=== PATIENT | male | born 1945 | race African-American/Black ===

== ENCOUNTER 2016-07-18 07:59 | Emergency (ER) | payer OTHER, MEDICAID ==
[~2016-07-18] VITALS: Ht 188 cm; Wt 100.0 kg
[2016-07-18 08:02] VITALS: Ht 188 cm; Wt 100.0 kg
[2016-07-18] MEDS ORDERED: ONDANSETRON 4 MG INJ IV STA (08:16)
[2016-07-18] MEDS ORDERED: SOD CHLORIDE 0.9% 1,000 ML IV STA (08:16)
[2016-07-18] MEDS ORDERED: morphine 4 MG/ML VIAL IV STA (08:16)
[2016-07-18 09:20] LABS: BASOPHILS % 0.8 % (0.0-2.0); EOSINOPHILS # 0.1 10^3/ul (0.0-0.5); EOSINOPHILS % 2.3 % (0.0-7.0); HEMATOCRIT 37.9 % (42.0-52.0); HEMOGLOBIN 12.8 g/dl (14.0-18.0); LYMPHOCYTES # 3.2 10^3/ul (0.8-2.9); LYMPHOCYTES % 51.3 % (15.0-51.0); MEAN CORPUSCULAR HEMOGLOBIN 32.9 pg (29.0-33.0); MEAN CORPUSCULAR HGB CONC 33.8 g/dl (32.0-37.0); MEAN CORPUSCULAR VOLUME 97.3 fl (82.0-101.0); MEAN PLATELET VOLUME 8.2 fl (7.4-10.4); MONOCYTE # 0.5 10^3/ul (0.3-0.9); NEUTROPHIL # 2.4 10^3/ul (1.6-7.5); NEUTROPHILS % 37.6 % (39.0-77.0); PLATELET COUNT 218 10^3/UL (140-440); RED BLOOD COUNT 3.89 10^6/ul (4.70-6.10); RED CELL DISTRIBUTION WIDTH 18.6 % (11.5-14.5); UNCORRECTED WBC 6.3 10^3/ul (4.8-10.8); WHITE BLOOD COUNT 6.3 10^3/ul (4.8-10.8)
[2016-07-18 09:25] LABS: CONDITION 1; LH ANALYZER COMMENTS 1
[2016-07-18 09:26] LABS: ALBUMIN 3.8 g/dl (3.3-4.9)
[2016-07-18 09:27] LABS: POTASSIUM 3.2 mmol/L (3.5-5.1)
[2016-07-18 09:29] LABS: BILIRUBIN,INDIRECT 0.2 mg/dl (0-1.1); BILIRUBIN,TOTAL 0.2 mg/dl (0.2-1.3); CREATININE 0.58 mg/dl (0.61-1.24)
[2016-07-18 09:30] LABS: ALBUMIN/GLOBULIN RATIO 1.11; CALCIUM 8.7 mg/dl (8.4-10.2); TOTAL PROTEIN 7.2 g/dl (6.1-8.1)
[2016-07-18 09:41] LABS: TROPONIN-I 0.032 ng/ml (0.00-0.12)
[2016-07-18] MEDS ORDERED: IOHEXOL 300MG/ML 150 ML BTL ONE (09:46)
[2016-07-18] MEDS ORDERED: SOD CHLORIDE 0.9% 100 ML ONE (09:46)
--- NOTE | 2016-07-18 10:21 | RADRPT ---
PROCEDURE: CT brain without contrast CLINICAL INDICATION: Weakness TECHNIQUE: CT of the brain without contrast performed on a multidetector CT scanner, with multiplan ar reformats. One or more of the following dose reduction techniques were used: Automated exposure control, adjustment in mA and / or kV according to patient size, use of iterative reconstructive maggie hnique. CTDIvol = 44 mGy; DLP = 810 mGy-cm. COMPARISON: None available FINDINGS: No acute intracranial hemorrhage is identified. No extra-axial fluid collection is seen. There is no mass effect. No midline shift is identified. Ventricles and sulci are mildly enlarged compatible with generalized volume loss. There are mild areas of hypodensity in the periventricular - deep white matter which are nonspecific but suggestive of chronic small vessel ischemic changes. Weller-white differentiation is preserved. Atherosclerotic calcifications of the intracranial internal carotid arteries are noted. Osseous structures are unremarkable. Mastoid air cells and imaged paranasal sinuses grossly clear. IMPRESSION: 1. No acute intracranial pathology identified. 2. Mild generalized volume loss, with mild chronic small vessel ischemic changes. RPTAT: VV .Neal Schaefer MD, Date Time Electronically viewed and signed by .Neal Schaefer MD, on 07/18/2016 10:20 .O/
[2016-07-18 10:30] VITALS: BP 138/76; PULSE 90; RESP 20
--- NOTE | 2016-07-18 10:32 | RADRPT ---
PROCEDURE: CT abdomen and pelvis with contrast. CLINICAL INDICATION: abdominal pain TECHNIQUE: CT scan of the abdomen and pelvis with contrast [facility] The patient was scanned after administration of 100 cc of Omnipaque-300 intravenous contrast. Sagittal and coronal reformatted images were obtained from the axial source images. DLP 1424.3 mGycm. CTDIvol 19.4 mGy COMPARISON: None. FINDINGS: Bibasilar scarring is seen with slight elevation of the right hemidiaphragm and a trace amount of ri ght-sided pleural fluid.. Coronary artery calcifications are seen in the heart. There is an area of localized mild fat stranding seen in the pancreatic head there is indeterminate with a fluid density structure measuring 2.7 x 2.3 cm in the pancreatic uncinate process which has s ome calcifications along the rim and the largest of these measures 6 mm on series 3, image 93. Ther e is no pancreatic ductal dilatation or dilatation of the common duct with no gross visible stone fo r expected course of the common duct itself. There is a possible pancreatic divisum. The gallbladder is distended with multiple layering gallstones with no visible surrounding perichole cystic fluid or fat stranding. The liver is diffusely fatty infiltrated with no evidence of focal l esion or intrahepatic biliary ductal dilatation. The portal vein is intact without thrombus. The spleen is unremarkable without mass. The adrenal glands are within normal limits without mass. The kidneys enhance symmetrically bilaterally without hydronephrosis or perinephric stranding. There is no bowel obstruction or focal bowel inflammation. The appendix is unremarkable. There is diverticulosis without diverticulitis. There is no free air or free fluid. There are no enlarged l ymph nodes. There is aortic atherosclerosis without aneurysmal dilatation. Degenerative changes are seen in t he lumbar spine with no acute osseous abnormality. The prostate is grossly unremarkable. There are small bilateral fat containing inguinal hernias. IMPRESSION: Indeterminate localized fat stranding inflammation is seen around the pancreatic uncinate process wh ere there is a fluid density structure measuring up to 2.7 cm and is adjacent calcifications. This could represent localized pancreatitis with a possible dilated side branch or focal pseudocyst. Thi s could also represent a cystic lesion of the pancreas. Calcifications are seen adjacent to the cystic structure and this could represent an obstructing sto ne within the accessory duct. There are also findings are suggestive for possible pancreatic divisu m they can be further assessed with MRCP. Multiple gallstones are seen without evidence of cholecystitis or biliary ductal dilatation. Prominent fatty liver. No evidence of bowel obstruction or focal bowel inflammation. The appendix is unremarkable. Atherosclerotic disease. RPTAT: AA .Dara Venegas MD, MD Date Time Electronically viewed and signed by .Dara Venegas MD, MD on 07/18/2016 10:32 .J/
--- NOTE | 2016-07-18 11:01 | RADRPT ---
PROCEDURE: XR Chest. CLINICAL INDICATION: Dyspnea. TECHNIQUE: Single frontal chest x-ray. COMPARISON: None available FINDINGS: The lungs volumes are diminished. There are compressive changes with vascular crowding and basilar atelectasis. No acute infiltrate is seen. The cardiomediastinal silhouette is normal. The surroun ding soft tissues and osseous structures are remarkable for degenerative spondylosis of the spine. IMPRESSION: 1. Low lung volumes with compressive changes and basilar atelectasis. 2. No acute infiltrate is seen. RPTAT: QQ .Moe Charlton MD, MD Date Time Electronically viewed and signed by .Moe Charlton MD, on 07/18/2016 11:00 .R/
[2016-07-18] MEDS ORDERED: HYD25 PO (11:05)
--- NOTE | 2016-07-18 11:05 | RADRPT ---
PROCEDURE: XR right rib series. CLINICAL INDICATION: Fall, pain TECHNIQUE: 4 views of the right rib cage are available for review COMPARISON: None available FINDINGS: The osseous structures, articular spaces, and surrounding soft tissues of the right rib cage are int act. No acute fracture or dislocation is seen. No radiopaque foreign body is identified. The visua lized portions of the underlying lung is clear. IMPRESSION: 1. Unremarkable right rib cage x-ray series. RPTAT: QQ .Moe Charlton MD, MD Date Time Electronically viewed and signed by .Moe Charlton MD, MD on 07/18/2016 11:05 .R/
[2016-07-18] MEDS ORDERED: LORAZEPAM 2 MG INJ IV ONE (13:00)
[2016-07-18] MEDS ORDERED: LORA1TAB PO (13:26)
--- NOTE | 2016-07-18 13:34 | ERD ---
ER Documentation Chief Complaint Date/Time DATE: 07/18/16 TIME: 13:28 Chief Complaint BROUGHT IN VIA EMS DUE TO RECENT MULTIPLE FALLS AND CHRONIC DRINKER HPI This is 71-year-old male who is a chronic alcoholic. Patient states that he drank last night and this morning. The patient states he recalls going to bed that he woke up on the floor on the side of his bed this morning he does not know how he got there. He does not recall falling. He is complaining of right rib pain described as sharp and worse with movement. Denies headache denies neck pain denies abdominal pain denies vomiting diarrhea nausea no chest pain shortness of breath no recent illness. The patient's friend is here with him. She states that she is buying him beer and vodka and supporting his alcohol habit. She says the patient is living in a motel she visits him daily. Patient says he has had an alcohol problem for years. He has been in and out of rehab in the past ROS All systems reviewed and are negative except as per history of present illness. Medications Home Meds Active Scripts Lorazepam* (Lorazepam*) 1 Mg Tablet, 1 MG PO every 6-8 hours Y for ANXIETY, #15 TAB Prov:TWILAKEVINKINGYOANNAHEATHER ClaireRonit DO 07/18/16 Reported Medications Hydrochlorothiazide* (Hydrochlorothiazide*) 25 Mg Tab, 25 MG PO DAILY, #30 TAB 07/18/16 Allergies Allergies: Coded Allergies: erythromycin base (Verified Allergy, Severe, 07/18/16) PMhx/Soc Medical and Surgical Hx: Unable to obtain Hx Alcohol Use: Yes Hx Substance Use: Yes Hx Tobacco Use: Yes Smoking Status: Current every day smoker FmHx Family History: No coronary disease Physical Exam Vitals Vital Signs Date Time Temp Pulse Resp B/P Pulse Ox O2 Delivery O2 Flow Rate FiO2 07/18/16 10:30 90 20 138/76 99 Room Air 07/18/16 08:02 98.5 120 18 154/90 98 Physical Exam Const: Well-developed, well-nourished Head: Atraumatic, normocephalic Eyes: Normal Conjunctiva, PERRLA, EOMI, normal sclera, no nystagmus ENT: Normal External Ears, Nose and Mouth, moist mucus membranes. Neck: Full range of motion. No meningismus, no lymphadenopathy. Resp: Clear to auscultation bilaterally, no wheezing, rhonchi, rales, right anterior chest wall tenderness no crepitus tenderness is mild located at rib 5 and 6 anteriorly Cardio: Regular rate and rhythm, no murmurs, S1 S2 present Abd: Soft, mild left upper quadrant tenderness, non distended. Normal bowel sounds, no guarding or rebound, no pulsitile abdominal masses or bruits Skin: No petechiae or rashes, no ecchymosis , no maculopapular rash Back: No midline or flank tenderness Ext: No cyanosis, or edema, FROM x 4, normal inspection, neurovascularly intact x 4 Neur: Awake and alert, STR 5/5 x 4, sensation intact x 4, no focal findings, cerebellum intact Psych: Normal Mood and Affect Result Diagram: 07/18/1682907/18/1630 Results 24 hrs Laboratory Tests Test 07/18/16 08:30 Alanine Aminotransferase (ALT/SGPT) 32IU/L Albumin 3.8g/dl Albumin/Globulin Ratio 1.11 Alkaline Phosphatase 94IU/L Anion Gap 23 Aspartate Amino Transf (AST/SGOT) 56IU/L Basophils # 0.010^3/ul Basophils % 0.8% Blood Morphology Comment Blood Urea Nitrogen 3mg/dl Calcium Level 8.7mg/dl Carbon Dioxide Level 26mmol/L Chloride Level 104mmol/L Creatinine 0.58mg/dl Differential Comment AUTO w/SCAN Direct Bilirubin 0.00mg/dl Eosinophils # 0.110^3/ul Eosinophils % 2.3% Ethyl Alcohol Level 350.0mg/dl Globulin 3.40g/dl Glucose Level 95mg/dl Hematocrit 37.9% Hemoglobin 12.8g/dl Indirect Bilirubin 0.2mg/dl Lipase 241U/L Lymphocytes # 3.210^3/ul Lymphocytes % 51.3% Mean Corpuscular Hemoglobin 32.9pg Mean Corpuscular Hemoglobin Concent 33.8g/dl Mean Corpuscular Volume 97.3fl Mean Platelet Volume 8.2fl Monocytes # 0.510^3/ul Monocytes % 8.0% Neutrophils # 2.410^3/ul Neutrophils % 37.6% Nucleated Red Blood Cells # 0.010^3/ul Nucleated Red Blood Cells % 0.0/100WBC Platelet Count 00737^3/UL Potassium Level 3.2mmol/L Red Blood Count 3.8910^6/ul Red Cell Distribution Width 18.6% Sodium Level 150mmol/L Total Bilirubin 0.2mg/dl Total Protein 7.2g/dl Troponin I 0.032ng/ml White Blood Count 6.310^3/ul Current Medications Medications (Trade) Dose Ordered Sig/Roman Route PRN Reason Start Time Stop Time Status Last Admin Dose Admin Sodium Chloride (NS) 1,000 ml @ 1,000 mls/hr Q1H STAT IV 07/18/16 08:16 07/18/16 09:15 DC 07/18/16 08:34 Morphine Sulfate (morphine) 4 mg ONCE STAT IV 07/18/16 08:16 07/18/16 08:21 DC 07/18/16 08:33 Ondansetron HCl (Zofran Inj) 4 mg ONCE STAT IV 07/18/16 08:16 07/18/16 08:21 DC 07/18/16 08:34 IV Flush 10 ml 10 ml STK-MED ONCE .ROUTE 07/18/16 09:46 07/18/16 09:47 DC 07/18/16 10:14 Sodium Chloride (NS) 100 ml @ ud STK-MED ONCE .ROUTE 07/18/16 09:46 07/18/16 09:47 DC 07/18/16 10:14 Iohexol (Omnipaque 300mg/ ml) 150 ml STK-MED ONCE .ROUTE 07/18/16 09:46 07/18/16 09:47 DC 07/18/16 10:14 Lorazepam (Ativan) 1 mg ONCE ONCE IV 07/18/16 13:00 07/18/16 13:01 DC Procedures/MDM PROCEDURE: CT abdomen and pelvis with contrast. CLINICAL INDICATION: abdominal pain TECHNIQUE: CT scan of the abdomen and pelvis with contrast was performed on a multi-slice CT scanner . The patient was scanned after administration of 100 cc of Omnipaque-300 intravenous contrast. Sagittal and coronal reformatted images were obtained from the axial source images. DLP 1424.3 mGycm. CTDIvol 19.4 mGy COMPARISON: None. FINDINGS: Bibasilar scarring is seen with slight elevation of the right hemidiaphragm and a trace amount of right-sided pleural fluid.. Coronary artery calcifications are seen in the heart. There is an area of localized mild fat stranding seen in the pancreatic head there is indeterminate with a fluid density structure measuring 2.7 x 2.3 cm in the pancreatic uncinate process which has some calcifications along the rim and the largest of these measures 6 mm on series 3, image 93. There is no pancreatic ductal dilatation or dilatation of the common duct with no gross visible stone for expected course of the common duct itself. There is a possible pancreatic divisum. The gallbladder is distended with multiple layering gallstones with no visible surrounding pericholecystic fluid or fat stranding. The liver is diffusely fatty infiltrated with no evidence of focal lesion or intrahepatic biliary ductal dilatation. The portal vein is intact without thrombus. The spleen is unremarkable without mass. The adrenal glands are within normal limits without mass. The kidneys enhance symmetrically bilaterally without hydronephrosis or perinephric stranding. There is no bowel obstruction or focal bowel inflammation. The appendix is unremarkable. There is diverticulosis without diverticulitis. There is no free air or free fluid. There are no enlarged lymph nodes. There is aortic atherosclerosis without aneurysmal dilatation. Degenerative changes are seen in the lumbar spine with no acute osseous abnormality. The prostate is grossly unremarkable. There are small bilateral fat containing inguinal hernias. IMPRESSION: Indeterminate localized fat stranding inflammation is seen around the pancreatic uncinate process where there is a fluid density structure measuring up to 2.7 cm and is adjacent calcifications. This could represent localized pancreatitis with a possible dilated side branch or focal pseudocyst. This could also represent a cystic lesion of the pancreas. Calcifications are seen adjacent to the cystic structure and this could represent an obstructing stone within the accessory duct. There are also findings are suggestive for possible pancreatic divisum they can be further assessed with MRCP. Multiple gallstones are seen without evidence of cholecystitis or biliary ductal dilatation. Prominent fatty liver. No evidence of bowel obstruction or focal bowel inflammation. The appendix is unremarkable. Atherosclerotic disease. RPTAT: AA .Dara Venegas MD, Date Time Electronically viewed and signed by .Dara Venegas MD, on 07/18/2016 10:32 .J/ CC: KRISHNA DUFF DO PROCEDURE: CT brain without contrast CLINICAL INDICATION: Weakness TECHNIQUE: CT of the brain without contrast performed on a multidetector CT scanner, with multiplanar reformats. One or more of the following dose reduction techniques were used: Automated exposure control, adjustment in mA and / or kV according to patient size, use of iterative reconstructive technique. CTDIvol = 44 mGy; DLP = 810 mGy-cm. COMPARISON: None available FINDINGS: No acute intracranial hemorrhage is identified. No extra-axial fluid collection is seen. There is no mass effect. No midline shift is identified. Ventricles and sulci are mildly enlarged compatible with generalized volume loss. There are mild areas of hypodensity in the periventricular - deep white matter which are nonspecific but suggestive of chronic small vessel ischemic changes. Weller-white differentiation is preserved. Atherosclerotic calcifications of the intracranial internal carotid arteries are noted. Osseous structures are unremarkable. Mastoid air cells and imaged paranasal sinuses grossly clear. IMPRESSION: 1. No acute intracranial pathology identified. 2. Mild generalized volume loss, with mild chronic small vessel ischemic changes. RPTAT: VV .Neal Schaefer MD, MD Date Time Electronically viewed and signed by .Neal Schaefer MD, on 07/18/2016 10:20 .O/ CC: KRISHNA DUFF DO PROCEDURE: XR Chest. CLINICAL INDICATION: Dyspnea. TECHNIQUE: Single frontal chest x-ray. COMPARISON: None available FINDINGS: The lungs volumes are diminished. There are compressive changes with vascular crowding and basilar atelectasis. No acute infiltrate is seen. The cardiomediastinal silhouette is normal. The surrounding soft tissues and osseous structures are remarkable for degenerative spondylosis of the spine. IMPRESSION: 1. Low lung volumes with compressive changes and basilar atelectasis. 2. No acute infiltrate is seen. RPTAT: QQ .Moe Charlton MD, MD Date Time Electronically viewed and signed by .Moe Charlton MD, MD on 07/18/2016 11: 00 .R/ CC: KRISHNA DUFF DO PROCEDURE: XR right rib series. CLINICAL INDICATION: Fall, pain TECHNIQUE: 4 views of the right rib cage are available for review COMPARISON: None available FINDINGS: The osseous structures, articular spaces, and surrounding soft tissues of the right rib cage are intact. No acute fracture or dislocation is seen. No radiopaque foreign body is identified. The visualized portions of the underlying lung is clear. IMPRESSION: 1. Unremarkable right rib cage x-ray series. RPTAT: QQ .Moe Charlton MD, MD Date Time Electronically viewed and signed by .Moe Charlton MD, MD on 07/18/2016 11: 05 .R/ CC: KRISHNA DUFF DO Patient's workup was relatively unremarkable. He is feeling better. The patient's alcohol level is 350. Patient is wanting to get some help for his alcohol problem. I had social staff worker come down to speak with him -she arranged some boarding care and follow-up with him We will provide him with Ativan to prevent withdrawal. There is no acute pancreatitis as his lipase is normal. He does have some nonspecific inflammatory changes around the uncinate of the pancreas with the cystic lesion which is likely a pancreatic cyst. I will have him follow-up with this finding Departure Diagnosis: Primary Impression: Alcohol abuse Additional Impressions: Abdominal pain Abdominal location: left upper quadrant Qualified Code: R10.12 - Left upper quadrant pain Chest wall contusion Encounter type: initial encounter Laterality: right Qualified Code: S20.211A - Chest wall contusion, right, initial encounter Condition: Stable Patient Instructions: Chest Wall Contusion, Abdominal Pain, Unkown Cause, (Male ), Alcohol Abuse KRISHNA DUFF DO Jul 18, 2016 13:34
[2016-07-18] MEDS ORDERED: ACETAMINOPHEN 325 MG TAB PO ONE (14:30)
== END 2016-07-18 14:56 | disposition home or self-care (01) ==
LOC: E/R 07:59
DX: F10.10 Alcohol abuse, uncomplicated (principal); S20.211A Contusion of right front wall of thorax, initial encounter; S39.91XA Unspecified injury of abdomen, initial encounter; F17.210 Nicotine dependence, cigarettes, uncomplicated; W19.XXXA Unspecified fall, initial encounter; Y92.9 Unspecified place or not applicable
CPT/HCPCS: 36415; 70450; 71010; 71100; 74177; 80053; 80306; 83690; 84484; 85025; 96374; 96375; 99285; J2060; J2270; J2405; J7030; Q9967